=== PATIENT | male | born 1985 | race Hispanic/Latino ===

== ENCOUNTER 2017-10-25 21:44 | Emergency (ER) | payer OTHER, SELFPAY ==
[2017-10-25] MEDS ORDERED: LIDOCAINE 1% 20 ML MDV ONE (23:14)
[2017-10-25] MEDS ORDERED: KETOROLAC 30 MG/ML INJ ONE (23:42)
[2017-10-25] MEDS ORDERED: MORPHINE 4 MG/ML SYR ONE (23:42)
[2017-10-25] MEDS ORDERED: ONDANSETRON 4 MG/2 ML VIAL ONE (23:42)
[2017-10-25] MEDS ORDERED: CEFAZOLIN/SWI 1gm 1 GM/10 ML SYR ONE (23:43)
[2017-10-25] MEDS ORDERED: NA CHLORIDE 0.9% 1,000 ML ONE (23:47)
[2017-10-26 00:18] LABS: Absolute Lymphocytes (CBC) 2.8 K/uL (0.7-4.9); Absolute Monocytes 0.9 K/uL (0.1-1.3); Absolute Neutrophil 12.5 K/uL (1.8-8.0); Basophils % 0.2 % (0-1.3); Eosinophils % 0.4 % (0-4.4); Hematocrit 44.1 % (39.6-49.0); Lymphocytes % 17.3 % (15.3-44.8); MCH 30.1 pg (27.0-35.0); MCV 89.4 fL (80-100); MPV 10.2 fL (7.6-11.3); Monocytes % 5.8 % (3.3-12.3); RBC Red Blood Cell Count 4.94 M/uL (4.33-5.43)
[2017-10-26 00:24] LABS: Bicarbonate 29 mEq/L (21-31); Glucose Level 93 mg/dL (65-120); Potassium 3.7 mEq/L (3.6-5.0); Sodium Level 137 mEq/L (135-145)
[2017-10-26 00:27] LABS: ALT/SGPT 22 IU/L (10-60); AST/SGOT 29 IU/L (10-42); Albumin 4.7 g/dL (3.2-5.5); Alkaline Phosphatase 69 IU/L (42-121); BUN Blood Urea Nitrogen 23 mg/dL (6-20); Bilirubin Total 0.6 mg/dL (0.3-1.2); Protein, Total 7.3 g/dL (6.0-8.3)
[2017-10-26] MEDS ORDERED: TETANUS & DIPHTHERIA TOX,ADULT 0.5 ML VIAL ONE (00:43)
[2017-10-26] MEDS ORDERED: CEPHALEXIN 250 MG CAP ONE (00:57)
[2017-10-26] MEDS ORDERED: HYDROCODONE/APAP 10/325 TAB ONE (00:57)
--- NOTE | 2017-10-26 00:57 | EDPHYS ---
Physician Documentation [facility] Name: Andres Shoemaker Age: 32 yrs Sex: Male : 1985 Arrival Date: 10/25/2017 Time: 21:49 Bed 6 Private MD: ED Physician Victoriano Sigala HPI: 10/25 23:34 This 32 yrs old Male presents to ER via Ambulatory with complaints of britton Laceration To Hand. 23:34 The patient has a laceration related to: cooking, from a knife. The laceration(s) britton is(are) located on the left hand. Onset: The symptoms/episode began/occurred just prior to arrival. Associated signs and symptoms: Pertinent positives: deformity. The patient has not experienced similar symptoms in the past. Historical: - Allergies: 22:06 No Known Allergies; aj - Home Meds: 22:06 None [Active]; aj - PMHx: 22:06 None; aj - PSHx: 22:06 None; aj - Immunization history:: Adult Immunizations up to date. - Social history:: Smoking status: Patient uses tobacco products, denies chronic smoking, but will smoke occasionally, Patient uses alcohol, occasionally. - Family history:: not pertinent. ROS: 23:34 Constitutional: Negative for fever, chills, and weight loss, Eyes: Negative for injury, britton pain, redness, and discharge, ENT: Negative for injury, pain, and discharge, Neck: Negative for injury, pain, and swelling, Cardiovascular: Negative for chest pain, palpitations, and edema, Respiratory: Negative for shortness of breath, cough, wheezing, and pleuritic chest pain, Abdomen/GI: Negative for abdominal pain, nausea, vomiting, diarrhea, and constipation, Back: Negative for injury and pain, : Negative for injury, bleeding, discharge, and swelling, Skin: Negative for injury, rash, and discoloration, Neuro: Negative for headache, weakness, numbness, tingling, and seizure, Psych: Negative for depression, anxiety, suicide ideation, homicidal ideation, and hallucinations, Allergy/Immunology: Negative for hives, rash, and allergies, Endocrine: Negative for neck swelling, polydipsia, polyuria, polyphagia, and marked weight changes. 23:34 MS/extremity: Positive for decreased range of motion, pain, swelling, tenderness, of the left hand. Exam: 23:34 Constitutional: This is a well developed, well nourished patient who is awake, alert, britton and in no acute distress. Head/Face: Normocephalic, atraumatic. Eyes: Pupils equal round and reactive to light, extra-ocular motions intact. Lids and lashes normal. Conjunctiva and sclera are non-icteric and not injected. Cornea within normal limits. Periorbital areas with no swelling, redness, or edema. ENT: Nares patent. No nasal discharge, no septal abnormalities noted. Tympanic membranes are normal and external auditory canals are clear. Oropharynx with no redness, swelling, or masses, exudates, or evidence of obstruction, uvula midline. Mucous membranes moist. Neck: Trachea midline, no thyromegaly or masses palpated, and no cervical lymphadenopathy. Supple, full range of motion without nuchal rigidity, or vertebral point tenderness. No Meningismus. Chest/axilla: Normal chest wall appearance and motion. Nontender with no deformity. No lesions are appreciated. Cardiovascular: Regular rate and rhythm with a normal S1 and S2. No gallops, murmurs, or rubs. Normal PMI, no JVD. No pulse deficits. Respiratory: Lungs have equal breath sounds bilaterally, clear to auscultation and percussion. No rales, rhonchi or wheezes noted. No increased work of breathing, no retractions or nasal flaring. Abdomen/GI: Soft, non-tender, with normal bowel sounds. No distension or tympany. No guarding or rebound. No evidence of tenderness throughout. Back: No spinal tenderness. No costovertebral tenderness. Full range of motion. Male : Normal genitalia with no discharge or lesions. Skin: Warm, dry with normal turgor. Normal color with no rashes, no lesions, and no evidence of cellulitis. Neuro: Awake and alert, GCS 15, oriented to person, place, time, and situation. Cranial nerves II-XII grossly intact. Motor strength 5/5 in all extremities. Sensory grossly intact. Cerebellar exam normal. Normal gait. Psych: Awake, alert, with orientation to person, place and time. Behavior, mood, and affect are within normal limits. 23:34 Musculoskeletal/extremity: ROM: limited active range of motion, limited passive range of motion, Circulation is intact in all extremities. Sensation intact. Compartment Syndrome exam of affected extremity: is normal. Vital Signs: 22:06 BP 117 / 84; Pulse 69; Resp 22; Temp 98.4; Pulse Ox 98% on R/A; Weight 72.57 kg; Height aj 5 ft. 6 in. (167.64 cm); Pain 8/10; 23:28 BP 128 / 79; Pulse 62; Resp 18; Pulse Ox 96% on R/A; tl2 10/26 00:32 BP 126 / 73; Pulse 66; Resp 20; Pulse Ox 97% on R/A; mt 04 22:06 Body Mass Index 25.82 (72.57 kg, 167.64 cm) aj Laceration: 00:53 Wound Repair of 1.5cm ( 0.6in ) subcutaneous laceration to palm of left hand. britton Irregularly shaped.. Distal neuro/vascular/tendon intact. Anesthesia: Local anesthetic administered with 5 mls of 1% lidocaine. Wound prep: Moderate cleansing by me. Skin closed with 2 4-0 Prolene using interrupted sutures and sterile technique. Dressed with Neosporin, non-adherent dressing. Patient tolerated well. MDM: 10/25 23:26 Patient medically screened. [facility] 23:34 Data reviewed: vital signs, nurses notes, lab test result(s), radiologic studies. [facility] 10/25 23:34 Order name: CBC with Diff; Complete Time: 00:51 [facility] 10/25 23:34 Order name: Comprehensive Metabolic Panel; Complete Time: 00:51 [facility] 10/25 23:34 Order name: Hand Left 3 View XRAY britton Administered Medications: 23:50 Drug: Ancef 1 grams Route: IVPB; Site: right antecubital; tl2 10/26 00:20 Follow up: IV Status: Completed infusion aa1 10/25 23:50 Drug: TORadol 30 mg Route: IVP; Site: right antecubital; tl2 10/26 00:50 Follow up: Response: No adverse reaction; Pain is decreased tl2 10/25 23:50 Drug: morphine 2 mg Route: IVP; Site: right antecubital; tl2 10/26 00:50 Follow up: Response: No adverse reaction; Pain is decreased tl2 10/25 23:50 Drug: Zofran 4 mg Route: IVP; Site: right antecubital; tl2 10/26 00:50 Follow up: Response: No adverse reaction tl2 10/25 23:50 Drug: NS 0.9% 1000 ml Route: IV; Rate: 1 bolus; Site: right antecubital; tl2 10/26 01:24 Follow up: IV Status: Completed infusion aa1 01:00 Drug: KeFLEX 500 mg Route: PO; aa1 01:24 Follow up: Response: No adverse reaction aa1 01:00 Drug: [place] 10 mg-325 mg 1 tabs Route: PO; aa1 01:23 Follow up: Response: No adverse reaction; Pain is decreased aa1 01:01 Drug: Tetanus-Diphtheria Toxoid Adult 0.5 ml {Director Human Services: [employer] Exp: tl2 02/15/2020. Lot #: [id number]. } Route: IM; Site: right deltoid; 01:24 Follow up: Response: No adverse reaction aa 01:02 Drug: morphine 2 mg Route: IVP; Site: right antecubital; tl2 01:30 Follow up: Response: No adverse reaction; Pain is decreased tl2 Disposition: 10/26/17 00:56 Discharged to Home. Impression: Laceration without foreign body of left hand, Puncture wound without foreign body of left hand. - Condition is Stable. - Discharge Instructions: Laceration Care, Adult, Puncture Wound, Laceration Care, Adult, [id number], Puncture Wound, [id number]. - Prescriptions for Keflex 500 mg Oral Capsule - take 1 capsule by ORAL route every 6 hours for 10 days; 40 capsule. Tylenol- Codeine #3 300-30 mg Oral Tablet - take 2 tablet by ORAL route every 6 hours As needed; 30 tablet. - Medication Reconciliation Form, Thank You Letter, Antibiotic Education, Prescription Opioid Use form. - Follow up: Private Physician; When: 2 - 3 days; Reason: Recheck today's complaints, Continuance of care, Re-evaluation by your physician. Follow up: Flakito Rhodes MD; When: 2 - 3 days; Reason: Recheck today's complaints, Re-evaluation by your physician. - Problem is new. - Symptoms have improved. Signatures: Dispatcher [employer] Zenobia Stein RN RN aa1 Deysi Kim RN RN aj Anderson, Corey, MD MD cha Knox, Taylor, RN RN tl2 Corrections: (The following items were deleted from the chart) 10/25 23:48 23:24 Hand Right 3 View+RAD.RAD.BRZ ordered. EDMS EDMS
--- NOTE | 2017-10-26 00:57 | ER ---
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 Transition of care: patient was not received from another setting of care. Complicating Factors: There are no complicating factors for this patient. Onset of symptoms was October 25, 2017. Care prior to arrival: None. 22:05 Method Of Arrival: Ambulatory aj 22:05 Acuity: TIM 4 aj Triage Assessment: 22:06 General: Appears in no apparent distress. comfortable, Behavior is calm, cooperative, aj appropriate for age. Pain: Complains of pain in palm of left hand. Neuro: Level of Consciousness is awake, alert, obeys commands, Oriented to person, place, time, situation. Respiratory: Airway is patent Respiratory effort is even, unlabored, Respiratory pattern is regular, symmetrical. Derm: Skin is intact, is healthy with good turgor, Skin is pink, warm \T\ dry. normal. Injury Description: Laceration sustained to palm of left hand was sustained 30-60 minutes ago. Historical: - Allergies: 22:06 No Known Allergies; aj - Home Meds: 22:06 None [Active]; aj - PMHx: 22:06 None; aj - PSHx: 22:06 None; aj - Immunization history:: Adult Immunizations up to date. - Social history:: Smoking status: Patient uses tobacco products, denies chronic smoking, but will smoke occasionally, Patient uses alcohol, occasionally. - Family history:: not pertinent. Screenin:09 Abuse screen: Denies threats or abuse. Nutritional screening: No deficits noted. tl2 Tuberculosis screening: No symptoms or risk factors identified. Fall Risk None identified. Assessment: 23:09 General: Appears in no apparent distress. uncomfortable, Behavior is cooperative, tl2 appropriate for age, anxious. Pain: Complains of pain in palm of left hand Pain does not radiate. Neuro: Level of Consciousness is awake, alert, obeys commands, Oriented to person, place, time, situation. Cardiovascular: Denies chest pain. Respiratory: Airway is patent Respiratory effort is even, unlabored, Respiratory pattern is regular, symmetrical. GI: No signs and/or symptoms were reported involving the gastrointestinal system. : No signs and/or symptoms were reported regarding the genitourinary system. Derm: Skin is pink, warm \T\ dry. Musculoskeletal: Circulation, motion, and sensation intact. Injury Description: Laceration sustained to palm of left hand is clean, 0.5 to 2.5 cm long, not bleeding, was sustained 1-2 hours ago. is bleeding a small amount a dressing was applied. 10/26 01:21 Reassessment: Patient appears in no apparent distress at this time. Patient is alert, aa1 oriented x 3, equal unlabored respirations, skin warm/dry/pink. Discussed d/c \T\ f/u instructions with pt \T\ family; verbalizes understanding. Vital Signs: 10/25 22:06 BP 117 / 84; Pulse 69; Resp 22; Temp 98.4; Pulse Ox 98% on R/A; Weight 72.57 kg; Height aj 5 ft. 6 in. (167.64 cm); Pain 8/10; 23:28 BP 128 / 79; Pulse 62; Resp 18; Pulse Ox 96% on R/A; tl2 10/26 00:32 BP 126 / 73; Pulse 66; Resp 20; Pulse Ox 97% on R/A; mt 10/25 22:06 Body Mass Index 25.82 (72.57 kg, 167.64 cm) ED Course: 10/25 21:49 Patient arrived in ED. al2 22:05 Triage completed. aj 22:06 Arm band placed on right wrist. Patient placed in waiting room, Patient notified of wait time. Bandage applied. Pressure dressing applied. 23:09 Patient has correct armband on for positive identification. Bed in low position. Call tl2 light in reach. Side rails up X 1. 23:26 Victoriano Sigala MD is Attending Physician. [facility] 23:28 Altagracia King RN is Primary Nurse. tl2 23:50 Hand Left 3 View XRAY In Process Unspecified. EDRI 10/26 00:55 Flakito Rhodes MD is Referral Physician. [facility] 01:00 Assist provider with laceration repair on palm of left hand that was 2.5 cm. or less aa1 using sutures. Set up tray. Performed by Victoriano Sigala MD Patient tolerated well. 01:21 IV discontinued, intact, bleeding controlled, No redness/swelling at site. Pressure aa1 dressing applied. Administered Medications: 10/25 23:50 Drug: Ancef 1 grams Route: IVPB; Site: right antecubital; tl2 10/26 00:20 Follow up: IV Status: Completed infusion aa1 10/25 23:50 Drug: TORadol 30 mg Route: IVP; Site: right antecubital; tl2 10/26 00:50 Follow up: Response: No adverse reaction; Pain is decreased tl2 10/25 23:50 Drug: morphine 2 mg Route: IVP; Site: right antecubital; tl2 10/26 00:50 Follow up: Response: No adverse reaction; Pain is decreased tl2 10/25 23:50 Drug: Zofran 4 mg Route: IVP; Site: right antecubital; tl2 10/26 00:50 Follow up: Response: No adverse reaction tl2 10/25 23:50 Drug: NS 0.9% 1000 ml Route: IV; Rate: 1 bolus; Site: right antecubital; tl2 10/26 01:24 Follow up: IV Status: Completed infusion aa1 01:00 Drug: KeFLEX 500 mg Route: PO; aa1 01:24 Follow up: Response: No adverse reaction aa1 01:00 Drug: [place] 10 mg-325 mg 1 tabs Route: PO; aa1 01:23 Follow up: Response: No adverse reaction; Pain is decreased aa1 01:01 Drug: Tetanus-Diphtheria Toxoid Adult 0.5 ml {[employer]: [employer]. Exp: tl2 02/15/2020. Lot #: [id number]. } Route: IM; Site: right deltoid; 01:24 Follow up: Response: No adverse reaction aa1 01:02 Drug: morphine 2 mg Route: IVP; Site: right antecubital; tl2 01:30 Follow up: Response: No adverse reaction; Pain is decreased tl2 Outcome: 00:56 Discharge ordered by . britton 01:21 Discharged to home ambulatory, with family. aa1 01:21 Condition: good 01:21 Discharge instructions given to patient, family, Instructed on discharge instructions, follow up and referral plans. medication usage, wound care, Demonstrated understanding of instructions, follow-up care, medications, wound care, Prescriptions given X 2. 01:25 Patient left the ED. aa1 Signatures: Dispatcher [employer] EDZenobia Elias, RN RN aa1 Deysi Kim RN Victoriano Gonzalez MD MD cha Knox, Taylor, RN RN tl2 Argenis Anand mt, Angelica al2
--- NOTE | 2017-10-26 08:49 | RAD REPORT ---
EXAM DESCRIPTION: RAD - Hand Left 3 View - 10/25/2017 11:53 pm CLINICAL HISTORY: Laceration, hand pain COMPARISON: None. FINDINGS: No fracture, dislocation or periosteal reaction noted. No foreign body. There is pronounce d soft tissue swelling over the dorsum of the hand. This could be hematoma, reactive edema or a [place]. IMPRESSION: Soft tissue hematoma or edema over the dorsum of the hand. No foreign body. No acute bone finding.
== END 2017-10-26 01:25 | disposition home or self-care (01) ==
LOC: ER 21:44
PROC: 0JQK0ZZ Repair Left Hand Subcutaneous Tissue and Fascia, Open Approach (ICD-10-PCS; principal; 2017-10-26)
DX: S61.412A Laceration without foreign body of left hand, initial encounter (principal); W26.0XXA Contact with knife, initial encounter; Y93.G3 Activity, cooking and baking; Y92.000 Kitchen of unspecified non-institutional (private) residence as the place of occurrence of the external cause
CPT/HCPCS: 36415; 80053; 85025; 90714; 96361; 96365; 96375; 99284; J0690; J2405; J7030